=== PATIENT | male | born 1950 ===

== ENCOUNTER 2023-07-02 08:07 | Inpatient (IN) | payer OTHER ==
[~2023-07-02] VITALS: Ht 175.3 cm; Wt 102.0 kg
[2023-07-02] VITALS (8 sets, daily range): BP systolic 131–146; BP diastolic 53–74; PULSE 75–134; RESP 22–38; TEMP 100.2–101; O2SAT 92–96
[2023-07-02 08:41] LABS: BASOPHILS % (AUTO) 0.8 % (0.0-2.0); EOSINOPHILS % (AUTO) 0.2 % (1.0-6.0); HEMATOCRIT 41.9 % (41-53); HEMOGLOBIN 14.2 g/dL (13.5-17.5); LYMPHOCYTES # (AUTO) 1.9 K/uL (1.0-4.8); LYMPHOCYTES % (AUTO) 12.3 % (22.0-44.0); MEAN CORPUSCULAR HEMOGLOBIN 28.8 pg (26.0-34.0); MEAN CORPUSCULAR HGB CONC 33.9 G/dL (31.0-37.0); MEAN CORPUSCULAR VOLUME 85 fL (80-100); MONOCYTES # (AUTO) 1.7 K/uL (0.1-1.0); NEUTROPHILS # (AUTO) 11.8 K/uL (1.8-7.7); NEUTROPHILS % (AUTO) 75.7 % (40.0-70.0); PLATELET COUNT (AUTO) 283 K/uL (150-450); RED BLOOD CELL COUNT(AUTO) 4.93 MIL/uL (4.50-5.90); RED CELL DISTRIBUTION WIDTH 15.1 % (11.5-14.5); WHITE BLOOD COUNT (AUTO) 15.7 K/uL (4.5-11.0)
[2023-07-02 08:42] LABS: COVID AG,FIA SOURCE NASAL SWAB
[2023-07-02 08:51] LABS: ANION GAP 7 mmol/L (8-16); CALCIUM, TOTAL 8.7 mg/dL (8.8-10.5); CARBON DIOXIDE 27 mmol/L (22-29); CHLORIDE 98 mmol/L (98-107); CREATININE 1.02 mg/dL (0.60-1.30); GLOMERULAR FILTR. RATE CALC > 60 mL/min (>60); GLUCOSE,RANDOM 194 mg/dL (70-110); POTASSIUM 4.5 mmol/L (3.5-5.1); SODIUM SERUM 132 mmol/L (136-145); UREA NITROGEN, BLOOD 18 mg/dL (7-18)
[2023-07-02 08:54] LABS: INR 1.1 (0.9-1.1); PROTHROMBIN TIME 11.3 SEC (9.4-11.6)
[2023-07-02 09:06] LABS: B-TYPE NATRIURETIC PEPTIDE 305 pg/mL (0-100); TROPONIN I-HIGH SENSITIVITY 254 ng/L (<76)
[2023-07-02 09:10] LABS: SARS-COV2 (COVID) ANTIGEN,FIA Negative (Negative)
[2023-07-02 09:13] LABS: INFLUENZA TYPE A NEGATIVE FOR TYPE A (NEGATIVE); INFLUENZA TYPE B NEGATIVE FOR TYPE B (NEGATIVE)
[2023-07-02 09:14] LABS: RESPIRATORY SYNCYTIAL VIRS,FIA NEGATIVE (Negative)
[2023-07-02] MEDS ORDERED: NITROGLYCERIN 2% (1 GM=INCH) OINTMENT PACKET TP ONE (09:15)
[2023-07-02] MEDS ORDERED: FUROSEMIDE 20 MG/2 ML VIAL IVP ONE (09:15)
[2023-07-02] MEDS ORDERED: PIPERACILLIN/TAZO 3.375 GM/D5W 50 ML IV ONE (09:15)
[2023-07-02] MEDS ORDERED: AZITHROMYCIN 500 MG/NS 250 ML IV ONE (09:15)
[2023-07-02 09:16] LABS: ALANINE AMINOTRANSFERASE 24 U/L (12-78); ALBUMIN 2.7 g/dL (3.4-5.0); ALKALINE PHOSPHATASE 77 U/L (46-116); ASPARTATE AMINOTRANSFERASE 35 U/L (15-37); BILIRUBIN,TOTAL 1.2 mg/dL (0.1-1.0); CREATINE KINASE, TOTAL ONLY 219 U/L (39-308); TOTAL PROTEIN, SERUM 8.1 g/dL (6.4-8.2)
[2023-07-02 09:17] LABS: SOURCE, BLOOD GAS ARTERIAL
[2023-07-02 09:18] LABS: ABG TOTAL HEMOGLOBIN 15.7 G/dL (12.0-18.0); TEMPERATURE, FAHRENHEIT, BG 98.3 FAHREN (96.0-98.6)
[2023-07-02 09:48] LABS: ABG CARBOXYHEMOGLOBIN 1.7 % (0.0-1.5); ABG HCO3 24.8 mmol/L (22.0-26.0); ABG METHEMOGLOBIN 0.2 % (0.0-1.5); ABG OXYGEN CONTENT 20.6 mL/dL (15.0-23.0); ABG OXYHEMOGLOBIN 93.2 % (94.0-100.0); ABG PCO2 47 mmHg (35-45); ABG PH 7.366 (7.35-7.450); PO2, ARTERIAL BG 76.6 mmHg (75.0-83.0)
[2023-07-02 09:49] LABS: ABG A-A DIFF O2 227.2 mmHg (10-20.0); ALLEN TEST, BLOOD GAS Positive; O2 DEVICE,BLOOD GAS BIPAP (ROOM AIR); SITE, BLOOD GAS RT RADIAL; SPONTANEOUS VT, BG 875 ml
[2023-07-02 09:57] LABS: LACTIC ACID 1.2 mmol/L (0.4-2.0)
[2023-07-02 13:03] LABS: APPEARANCE,URINE CLEAR (CLEAR); BILIRUBIN,URINE NEGATIVE (NEGATIVE); COLOR,URINE LIGHT YELLOW (YELLOW); GLUCOSE, URINE (UA) NEGATIVE (NEGATIVE); KETONES,URINE NEGATIVE (NEGATIVE); LEUKOCYTE ESTERASE ,URINE NEGATIVE (NEGATIVE); NITRATE,URINE NEGATIVE (NEGATIVE); OCCULT BLOOD,URINE NEGATIVE (NEGATIVE); PROTEIN,URINE NEGATIVE (NEGATIVE); SPECIFIC GRAVITIY, URINE 1.011 (1.003-1.030); UROBILINOGEN,URINE <=1.0 mg/dL (<=1.0)
[2023-07-02] MEDS ORDERED: MORPHINE SULFATE 2 MG/ML SYRINGE IVP PRN (13:15)
[2023-07-02] MEDS ORDERED: HYDROCODONE/ACETAMINOPHEN 5-325 MG TABLET PO PRN (13:15)
[2023-07-02] MEDS ORDERED: ZOLPIDEM TARTRATE 5 MG TABLET PO PRN (13:15)
[2023-07-02] MEDS ORDERED: *CLINICAL-LEVOFLOXACIN IVPB DOSING CLINICAL ONE (13:15)
[2023-07-02] MEDS ORDERED: BISACODYL 10 MG RECTAL RECTAL SUPPOSITORY PR PRN (13:15)
[2023-07-02] MEDS ORDERED: ONDANSETRON HCL 4 MG/2 ML VIAL IVP PRN (13:15)
[2023-07-02] MEDS: LEVOFLOXACIN 500 MG/D5% WATER 100 ML IV SCH (15:46)
[2023-07-02] MEDS: HEPARIN SODIUM,PORCINE 5,000 UNITS/ML VIAL SQ SCH ×2 (17:21→23:43)
[2023-07-02 17:26] LABS: TROPONIN I-HIGH SENSITIVITY 198 ng/L (<76)
[2023-07-02] MEDS: FUROSEMIDE 20 MG/2 ML VIAL IVP SCH (19:54)
[2023-07-02] MEDS: DOCUSATE SODIUM 100 MG CAPSULE PO SCH (19:54)
[2023-07-02] MEDS: CARVEDILOL 3.125 MG TABLET PO SCH (19:54)
[2023-07-02] MEDS: ACETAMINOPHEN 325 MG TABLET PO PRN (19:57)
[2023-07-03] VITALS (9 sets, daily range): BP systolic 105–143; BP diastolic 65–94; PULSE 79–95; RESP 17–37; TEMP 98.3–99.9; O2SAT 93–97
[2023-07-03 05:53] LABS: BASOPHILS % (AUTO) 0.7 % (0.0-2.0); EOSINOPHILS % (AUTO) 1.2 % (1.0-6.0); HEMATOCRIT 39.9 % (41-53); HEMOGLOBIN 13.2 g/dL (13.5-17.5); LYMPHOCYTES # (AUTO) 2.6 K/uL (1.0-4.8); LYMPHOCYTES % (AUTO) 18.4 % (22.0-44.0); MEAN CORPUSCULAR HEMOGLOBIN 28.3 pg (26.0-34.0); MEAN CORPUSCULAR VOLUME 86 fL (80-100); MONOCYTES % (AUTO) 14.5 % (2.0-9.0); NEUTROPHILS # (AUTO) 9.1 K/uL (1.8-7.7); NEUTROPHILS % (AUTO) 65.2 % (40.0-70.0); PLATELET COUNT (AUTO) 252 K/uL (150-450); RED BLOOD CELL COUNT(AUTO) 4.66 MIL/uL (4.50-5.90); RED CELL DISTRIBUTION WIDTH 14.9 % (11.5-14.5)
[2023-07-03 06:06] LABS: ANION GAP 6 mmol/L (8-16); CARBON DIOXIDE 30 mmol/L (22-29); CHLORIDE 99 mmol/L (98-107); CREATININE 1.07 mg/dL (0.60-1.30); GLUCOSE,RANDOM 107 mg/dL (70-110); POTASSIUM 4.3 mmol/L (3.5-5.1); SODIUM SERUM 135 mmol/L (136-145); UREA NITROGEN, BLOOD 25 mg/dL (7-18)
[2023-07-03 06:07] LABS: CALCIUM, TOTAL 8.6 mg/dL (8.8-10.5); GLOMERULAR FILTR. RATE CALC > 60 mL/min (>60)
[2023-07-03 06:21] LABS: TROPONIN I-HIGH SENSITIVITY 111 ng/L (<76)
[2023-07-03] MEDS: DOCUSATE SODIUM 100 MG CAPSULE PO SCH ×2 (08:24→20:14)
[2023-07-03] MEDS: PANTOPRAZOLE SODIUM 40 MG DR TABLET PO SCH (08:25)
[2023-07-03] MEDS: HEPARIN SODIUM,PORCINE 5,000 UNITS/ML VIAL SQ SCH ×2 (08:25→16:39)
[2023-07-03] MEDS: FUROSEMIDE 20 MG/2 ML VIAL IVP SCH ×2 (08:25→20:14)
[2023-07-03] MEDS: CARVEDILOL 3.125 MG TABLET PO SCH ×2 (08:25→20:13)
[2023-07-03] MEDS: LEVOFLOXACIN 500 MG/D5% WATER 100 ML IV SCH (16:39)
[2023-07-04] VITALS (8 sets, daily range): BP systolic 96–157; BP diastolic 59–91; PULSE 75–105; RESP 18–34; TEMP 98.1–100; O2SAT 89–96
[2023-07-04] MEDS: HEPARIN SODIUM,PORCINE 5,000 UNITS/ML VIAL SQ SCH ×3 (00:31→15:42)
[2023-07-04] MEDS: ACETAMINOPHEN 325 MG TABLET PO PRN ×3 (00:32→20:49)
[2023-07-04 05:54] LABS: BASOPHILS % (AUTO) 0.4 % (0.0-2.0); EOSINOPHILS % (AUTO) 2.9 % (1.0-6.0); HEMATOCRIT 37.9 % (41-53); HEMOGLOBIN 12.8 g/dL (13.5-17.5); LYMPHOCYTES # (AUTO) 1.9 K/uL (1.0-4.8); LYMPHOCYTES % (AUTO) 18.6 % (22.0-44.0); MEAN CORPUSCULAR HEMOGLOBIN 28.8 pg (26.0-34.0); MEAN CORPUSCULAR HGB CONC 33.9 G/dL (31.0-37.0); MEAN CORPUSCULAR VOLUME 85 fL (80-100); MONOCYTES # (AUTO) 1.5 K/uL (0.1-1.0); MONOCYTES % (AUTO) 15.3 % (2.0-9.0); NEUTROPHILS # (AUTO) 6.4 K/uL (1.8-7.7); NEUTROPHILS % (AUTO) 62.8 % (40.0-70.0); PLATELET COUNT (AUTO) 274 K/uL (150-450); RED BLOOD CELL COUNT(AUTO) 4.46 MIL/uL (4.50-5.90); RED CELL DISTRIBUTION WIDTH 14.7 % (11.5-14.5); WHITE BLOOD COUNT (AUTO) 10.1 K/uL (4.5-11.0)
[2023-07-04 06:03] LABS: ANION GAP 8 mmol/L (8-16); CALCIUM, TOTAL 7.8 mg/dL (8.8-10.5); CARBON DIOXIDE 28 mmol/L (22-29); CHLORIDE 97 mmol/L (98-107); CREATININE 1.02 mg/dL (0.60-1.30); GLOMERULAR FILTR. RATE CALC > 60 mL/min (>60); GLUCOSE,RANDOM 115 mg/dL (70-110); SODIUM SERUM 133 mmol/L (136-145); UREA NITROGEN, BLOOD 31 mg/dL (7-18)
[2023-07-04 08:08] LABS: TROPONIN I-HIGH SENSITIVITY 45 ng/L (<76)
[2023-07-04] MEDS: MULTIVITAMINS, THERAPEUTIC TABLET PO SCH (08:38)
[2023-07-04] MEDS: CARVEDILOL 3.125 MG TABLET PO SCH ×2 (08:38→20:49)
[2023-07-04] MEDS: PANTOPRAZOLE SODIUM 40 MG DR TABLET PO SCH (08:38)
[2023-07-04] MEDS: DOCUSATE SODIUM 100 MG CAPSULE PO SCH ×2 (08:39→20:49)
[2023-07-04] MEDS: FUROSEMIDE 20 MG/2 ML VIAL IVP SCH ×2 (08:39→20:49)
[2023-07-04] MEDS: LEVOFLOXACIN 750 MG/D5% WATER 150 ML IV SCH (15:43)
[2023-07-05 00:25] VITALS: BP 141/78; PULSE 92; RESP 18; TEMP 99.8
[2023-07-05 04:37] VITALS: BP 157/87; PULSE 94; RESP 21; TEMP 98.7
[2023-07-05 07:20] LABS: BASOPHILS % (AUTO) 0.3 % (0.0-2.0); EOSINOPHILS % (AUTO) 2.9 % (1.0-6.0); LYMPHOCYTES # (AUTO) 1.6 K/uL (1.0-4.8); LYMPHOCYTES % (AUTO) 17.3 % (22.0-44.0); MEAN CORPUSCULAR HGB CONC 34.1 G/dL (31.0-37.0); MEAN CORPUSCULAR VOLUME 85 fL (80-100); MONOCYTES # (AUTO) 1.4 K/uL (0.1-1.0); MONOCYTES % (AUTO) 15.1 % (2.0-9.0); NEUTROPHILS % (AUTO) 64.4 % (40.0-70.0); PLATELET COUNT (AUTO) 294 K/uL (150-450); RED BLOOD CELL COUNT(AUTO) 4.46 MIL/uL (4.50-5.90); RED CELL DISTRIBUTION WIDTH 14.6 % (11.5-14.5); WHITE BLOOD COUNT (AUTO) 9.3 K/uL (4.5-11.0)
[2023-07-05 07:48] LABS: ANION GAP 8 mmol/L (8-16); CALCIUM, TOTAL 8.1 mg/dL (8.8-10.5); CARBON DIOXIDE 28 mmol/L (22-29); CHLORIDE 96 mmol/L (98-107); CREATININE 0.86 mg/dL (0.60-1.30); GLOMERULAR FILTR. RATE CALC > 60 mL/min (>60); GLUCOSE,RANDOM 106 mg/dL (70-110); POTASSIUM 3.9 mmol/L (3.5-5.1); SODIUM SERUM 132 mmol/L (136-145); UREA NITROGEN, BLOOD 24 mg/dL (7-18)
[2023-07-05] MEDS: CARVEDILOL 3.125 MG TABLET PO SCH ×2 (08:28→21:28)
[2023-07-05] MEDS: FUROSEMIDE 20 MG/2 ML VIAL IVP SCH ×2 (08:28→21:29)
[2023-07-05] MEDS: MULTIVITAMINS, THERAPEUTIC TABLET PO SCH (08:28)
[2023-07-05] MEDS: PANTOPRAZOLE SODIUM 40 MG DR TABLET PO SCH (08:28)
[2023-07-05] MEDS: HEPARIN SODIUM,PORCINE 5,000 UNITS/ML VIAL SQ SCH ×4 (08:28→23:52)
[2023-07-05] MEDS: DOCUSATE SODIUM 100 MG CAPSULE PO SCH ×2 (08:28→21:00)
[2023-07-05 08:53] VITALS: BP 147/85; PULSE 93; RESP 19; TEMP 98.8
[2023-07-05 11:14] VITALS: BP 154/86; PULSE 105; RESP 14; TEMP 98.6
[2023-07-05 13:14] LABS: S PNEUMO SOURCE Urine; STREP PNEUMONIAE AG URINE Negative (Negative)
[2023-07-05 14:07] LABS: LEGIONELLA PNEUMO AG URINE Negative (Negative)
[2023-07-05] MEDS ORDERED: SODIUM CHLORIDE 0.9% 250 ML IV ONE (14:41)
[2023-07-05] MEDS: CLINDAMYCIN 600 MG/D5% WATER 50 ML IV SCH ×2 (14:45→21:29)
[2023-07-05 14:48] VITALS: BP 148/84; PULSE 96; RESP 16; TEMP 98.2
[2023-07-05] MEDS: LEVOFLOXACIN 750 MG/D5% WATER 150 ML IV SCH (15:31)
[2023-07-05 20:00] VITALS: BP 155/82; PULSE 100; RESP 16; TEMP 98.3
[2023-07-06] VITALS (7 sets, daily range): BP systolic 133–159; BP diastolic 76–94; PULSE 69–92; RESP 16–19; TEMP 98.2–98.7; O2SAT 98
[2023-07-06] MEDS: CLINDAMYCIN 600 MG/D5% WATER 50 ML IV SCH ×3 (06:34→21:02)
[2023-07-06 07:02] LABS: ANION GAP 7 mmol/L (8-16); CALCIUM, TOTAL 8.8 mg/dL (8.8-10.5); CARBON DIOXIDE 29 mmol/L (22-29); CHLORIDE 97 mmol/L (98-107); CREATININE 0.96 mg/dL (0.60-1.30); GLOMERULAR FILTR. RATE CALC > 60 mL/min (>60); GLUCOSE,RANDOM 104 mg/dL (70-110); POTASSIUM 4.2 mmol/L (3.5-5.1); SODIUM SERUM 133 mmol/L (136-145); UREA NITROGEN, BLOOD 24 mg/dL (7-18)
[2023-07-06] MEDS: FUROSEMIDE 20 MG/2 ML VIAL IVP SCH ×2 (09:00→21:01)
[2023-07-06] MEDS: DOCUSATE SODIUM 100 MG CAPSULE PO SCH ×2 (09:01→21:01)
[2023-07-06] MEDS: CARVEDILOL 6.25 MG TABLET PO SCH ×2 (09:01→21:01)
[2023-07-06] MEDS: HEPARIN SODIUM,PORCINE 5,000 UNITS/ML VIAL SQ SCH ×3 (09:01→23:10)
[2023-07-06] MEDS: MULTIVITAMINS, THERAPEUTIC TABLET PO SCH (09:01)
[2023-07-06] MEDS: PANTOPRAZOLE SODIUM 40 MG DR TABLET PO SCH (09:01)
[2023-07-06] MEDS: LEVOFLOXACIN 750 MG/D5% WATER 150 ML IV SCH (14:02)
[2023-07-06] MEDS: MAGNESIUM HYDROXIDE SUSPENSION 30 ML UDCUP PO PRN (18:39)
[2023-07-07 05:35] VITALS: BP 156/86; PULSE 82; RESP 19; TEMP 98.3
[2023-07-07] MEDS: CLINDAMYCIN 600 MG/D5% WATER 50 ML IV SCH ×3 (06:15→22:24)
[2023-07-07 07:56] VITALS: BP 140/85; PULSE 80; RESP 21; TEMP 98.4
[2023-07-07 08:00] VITALS: PULSE 72; RESP 16; O2SAT 99
[2023-07-07] MEDS: MULTIVITAMINS, THERAPEUTIC TABLET PO SCH (09:06)
[2023-07-07] MEDS: PANTOPRAZOLE SODIUM 40 MG DR TABLET PO SCH (09:06)
[2023-07-07] MEDS: DOCUSATE SODIUM 100 MG CAPSULE PO SCH ×2 (09:06→20:55)
[2023-07-07] MEDS: HEPARIN SODIUM,PORCINE 5,000 UNITS/ML VIAL SQ SCH ×3 (09:06→23:48)
[2023-07-07] MEDS: CARVEDILOL 6.25 MG TABLET PO SCH ×2 (09:06→20:55)
[2023-07-07] MEDS: FUROSEMIDE 20 MG/2 ML VIAL IVP SCH ×2 (09:10→20:55)
[2023-07-07 11:49] VITALS: BP 137/77; PULSE 78; RESP 20; TEMP 98.3
[2023-07-07] MEDS ORDERED: *CLINICAL-CEFEPIME DOSING CLINICAL ONE (12:15)
[2023-07-07] MEDS: CEFEPIME HCL 2 GM in DEXTROSE 5%-WATER 50 ML IV SCH ×2 (14:19→20:55)
[2023-07-07 15:44] VITALS: BP 136/78; PULSE 84; RESP 19; TEMP 98.3
[2023-07-07] MEDS: LEVOFLOXACIN 750 MG/D5% WATER 150 ML IV SCH (16:04)
[2023-07-07] MEDS: MAGNESIUM HYDROXIDE SUSPENSION 30 ML UDCUP PO PRN (18:40)
[2023-07-07 20:08] VITALS: BP 168/91; PULSE 86; RESP 21; TEMP 98.6
[2023-07-08 00:43] VITALS: BP 141/84; PULSE 90; RESP 20; TEMP 98.3
[2023-07-08 04:13] VITALS: BP 139/81; PULSE 87; RESP 20; TEMP 98.7
[2023-07-08] MEDS: CEFEPIME HCL 2 GM in DEXTROSE 5%-WATER 50 ML IV SCH ×3 (05:00→21:29)
[2023-07-08] MEDS: CLINDAMYCIN 600 MG/D5% WATER 50 ML IV SCH ×3 (06:00→22:39)
[2023-07-08 07:30] VITALS: BP 156/90; PULSE 88; RESP 20; TEMP 98.5
[2023-07-08] MEDS: MULTIVITAMINS, THERAPEUTIC TABLET PO SCH (08:28)
[2023-07-08] MEDS: FUROSEMIDE 20 MG/2 ML VIAL IVP SCH ×2 (08:28→21:29)
[2023-07-08] MEDS: PANTOPRAZOLE SODIUM 40 MG DR TABLET PO SCH (08:28)
[2023-07-08] MEDS: DOCUSATE SODIUM 100 MG CAPSULE PO SCH ×2 (08:28→21:00)
[2023-07-08] MEDS: HEPARIN SODIUM,PORCINE 5,000 UNITS/ML VIAL SQ SCH ×2 (08:28→16:24)
[2023-07-08] MEDS: CARVEDILOL 6.25 MG TABLET PO SCH ×2 (08:28→21:29)
[2023-07-08 11:34] VITALS: BP 138/74; PULSE 83; RESP 20; TEMP 98.2
[2023-07-08] MEDS: LEVOFLOXACIN 750 MG/D5% WATER 150 ML IV SCH (15:03)
[2023-07-08 15:45] VITALS: BP 143/85; PULSE 87; RESP 21; TEMP 98.2
[2023-07-08 19:26] VITALS: BP 144/84; PULSE 92; RESP 20; TEMP 99
[2023-07-09] VITALS (7 sets, daily range): BP systolic 124–152; BP diastolic 71–87; PULSE 82–105; RESP 18–22; TEMP 98–98.8; O2SAT 93
[2023-07-09] MEDS: HEPARIN SODIUM,PORCINE 5,000 UNITS/ML VIAL SQ SCH ×3 (00:14→15:58)
[2023-07-09] MEDS: CEFEPIME HCL 2 GM in DEXTROSE 5%-WATER 50 ML IV SCH ×3 (04:47→20:57)
[2023-07-09] MEDS ORDERED: SODIUM CHLORIDE 0.9% 250 ML IV ONE (04:57)
[2023-07-09] MEDS: CLINDAMYCIN 600 MG/D5% WATER 50 ML IV SCH ×3 (07:04→22:07)
[2023-07-09] MEDS: MULTIVITAMINS, THERAPEUTIC TABLET PO SCH (08:31)
[2023-07-09] MEDS: PANTOPRAZOLE SODIUM 40 MG DR TABLET PO SCH (08:31)
[2023-07-09] MEDS: CARVEDILOL 6.25 MG TABLET PO SCH ×2 (08:31→20:57)
[2023-07-09] MEDS: FUROSEMIDE 20 MG/2 ML VIAL IVP SCH ×2 (08:31→20:57)
[2023-07-09] MEDS: DOCUSATE SODIUM 100 MG CAPSULE PO SCH ×2 (08:31→20:59)
[2023-07-09] MEDS: LEVOFLOXACIN 750 MG/D5% WATER 150 ML IV SCH (15:05)
[2023-07-10] VITALS (7 sets, daily range): BP systolic 118–154; BP diastolic 71–88; PULSE 84–90; RESP 18–20; TEMP 98–98.7
[2023-07-10] MEDS: HEPARIN SODIUM,PORCINE 5,000 UNITS/ML VIAL SQ SCH ×4 (00:16→23:31)
[2023-07-10] MEDS: CEFEPIME HCL 2 GM in DEXTROSE 5%-WATER 50 ML IV SCH ×3 (04:56→20:27)
[2023-07-10] MEDS: CLINDAMYCIN 600 MG/D5% WATER 50 ML IV SCH ×3 (06:07→23:26)
[2023-07-10] MEDS: DOCUSATE SODIUM 100 MG CAPSULE PO SCH ×2 (09:00→20:27)
[2023-07-10] MEDS: PANTOPRAZOLE SODIUM 40 MG DR TABLET PO SCH (09:05)
[2023-07-10] MEDS: MULTIVITAMINS, THERAPEUTIC TABLET PO SCH (09:05)
[2023-07-10] MEDS: CARVEDILOL 6.25 MG TABLET PO SCH ×2 (09:05→20:28)
[2023-07-10] MEDS: FUROSEMIDE 20 MG/2 ML VIAL IVP SCH ×2 (09:05→20:27)
[2023-07-10 11:31] LABS: ABG A-A DIFF O2 212.7 mmHg (10-20.0); ABG BASE EXCESS 5.2 mmol/L (-2.0-3.0); ABG CARBOXYHEMOGLOBIN 1.1 % (0.0-1.5); ABG HCO3 28.6 mmol/L (22.0-26.0); ABG METHEMOGLOBIN 0.1 % (0.0-1.5); ABG OXYGEN CONTENT 19.3 mL/dL (15.0-23.0); ABG OXYGEN SATURATION 93.3 % (95.0-98.0); ABG OXYHEMOGLOBIN 92.2 % (94.0-100.0); ABG PCO2 41 mmHg (35-45); ABG PH 7.463 (7.35-7.450); ABG TOTAL HEMOGLOBIN 14.9 G/dL (12.0-18.0); ALLEN TEST, BLOOD GAS Positive; PO2, ARTERIAL BG 61.1 mmHg (75.0-83.0); SITE, BLOOD GAS RT RADIAL; SOURCE, BLOOD GAS ARTERIAL; TEMPERATURE, FAHRENHEIT, BG 98.6 FAHREN (96.0-98.6)
[2023-07-10 11:32] LABS: O2 DEVICE,BLOOD GAS HI FL CANNULA (ROOM AIR)
[2023-07-10] MEDS: LEVOFLOXACIN 750 MG/D5% WATER 150 ML IV SCH (16:35)
[2023-07-11 03:54] VITALS: BP 128/79; PULSE 82; RESP 19; TEMP 98.4
[2023-07-11] MEDS: CEFEPIME HCL 2 GM in DEXTROSE 5%-WATER 50 ML IV SCH ×3 (05:21→20:39)
[2023-07-11] MEDS: CLINDAMYCIN 600 MG/D5% WATER 50 ML IV SCH ×3 (06:16→22:11)
[2023-07-11 07:18] LABS: BASOPHILS % (AUTO) 0.5 % (0.0-2.0); EOSINOPHILS % (AUTO) 3.1 % (1.0-6.0); HEMATOCRIT 39.9 % (41-53); HEMOGLOBIN 13.2 g/dL (13.5-17.5); LYMPHOCYTES # (AUTO) 2.4 K/uL (1.0-4.8); LYMPHOCYTES % (AUTO) 23.1 % (22.0-44.0); MEAN CORPUSCULAR HEMOGLOBIN 28.1 pg (26.0-34.0); MEAN CORPUSCULAR HGB CONC 33.2 G/dL (31.0-37.0); MEAN CORPUSCULAR VOLUME 85 fL (80-100); MONOCYTES # (AUTO) 1.8 K/uL (0.1-1.0); MONOCYTES % (AUTO) 16.7 % (2.0-9.0); NEUTROPHILS % (AUTO) 56.6 % (40.0-70.0); PLATELET COUNT (AUTO) 386 K/uL (150-450); RED BLOOD CELL COUNT(AUTO) 4.71 MIL/uL (4.50-5.90); RED CELL DISTRIBUTION WIDTH 13.9 % (11.5-14.5); WHITE BLOOD COUNT (AUTO) 10.5 K/uL (4.5-11.0)
[2023-07-11 07:48] LABS: ANION GAP 6 mmol/L (8-16); CALCIUM, TOTAL 8.7 mg/dL (8.8-10.5); CARBON DIOXIDE 28 mmol/L (22-29); CHLORIDE 93 mmol/L (98-107); GLOMERULAR FILTR. RATE CALC > 60 mL/min (>60); GLUCOSE,RANDOM 99 mg/dL (70-110); POTASSIUM 4.3 mmol/L (3.5-5.1); SODIUM SERUM 127 mmol/L (136-145); UREA NITROGEN, BLOOD 22 mg/dL (7-18)
[2023-07-11 08:00] VITALS: BP 124/74; PULSE 80; RESP 18; TEMP 97.9
[2023-07-11] MEDS: PANTOPRAZOLE SODIUM 40 MG DR TABLET PO SCH (08:31)
[2023-07-11] MEDS: MULTIVITAMINS, THERAPEUTIC TABLET PO SCH (08:31)
[2023-07-11] MEDS: FUROSEMIDE 20 MG/2 ML VIAL IVP SCH ×2 (08:31→20:38)
[2023-07-11] MEDS: CARVEDILOL 6.25 MG TABLET PO SCH ×2 (08:31→20:38)
[2023-07-11] MEDS: HEPARIN SODIUM,PORCINE 5,000 UNITS/ML VIAL SQ SCH ×3 (08:31→23:54)
[2023-07-11] MEDS: DOCUSATE SODIUM 100 MG CAPSULE PO SCH ×2 (09:00→21:00)
[2023-07-11 12:00] VITALS: BP 130/80; PULSE 74; RESP 18; TEMP 97.9
[2023-07-11 16:00] VITALS: BP 126/84; PULSE 76; RESP 18; TEMP 97.9
[2023-07-11] MEDS: LEVOFLOXACIN 750 MG/D5% WATER 150 ML IV SCH (16:00)
[2023-07-11 20:01] VITALS: BP 125/81; PULSE 89; RESP 18; TEMP 98.2
[2023-07-12] VITALS (8 sets, daily range): BP systolic 113–157; BP diastolic 70–93; PULSE 75–107; RESP 18–28; TEMP 98–98.7
[2023-07-12] MEDS: CEFEPIME HCL 2 GM in DEXTROSE 5%-WATER 50 ML IV SCH ×3 (05:23→21:31)
[2023-07-12] MEDS: CLINDAMYCIN 600 MG/D5% WATER 50 ML IV SCH ×3 (06:20→22:28)
[2023-07-12 07:53] LABS: ANION GAP 8 mmol/L (8-16); CARBON DIOXIDE 27 mmol/L (22-29); CHLORIDE 93 mmol/L (98-107); GLOMERULAR FILTR. RATE CALC > 60 mL/min (>60); GLUCOSE,RANDOM 100 mg/dL (70-110); POTASSIUM 4.7 mmol/L (3.5-5.1); SODIUM SERUM 128 mmol/L (136-145); UREA NITROGEN, BLOOD 23 mg/dL (7-18)
[2023-07-12] MEDS: HEPARIN SODIUM,PORCINE 5,000 UNITS/ML VIAL SQ SCH ×3 (08:00→16:44)
[2023-07-12] MEDS: PANTOPRAZOLE SODIUM 40 MG DR TABLET PO SCH (08:53)
[2023-07-12] MEDS: DOCUSATE SODIUM 100 MG CAPSULE PO SCH ×2 (08:53→21:31)
[2023-07-12] MEDS: FUROSEMIDE 20 MG/2 ML VIAL IVP SCH ×2 (08:53→21:34)
[2023-07-12] MEDS: CARVEDILOL 6.25 MG TABLET PO SCH ×2 (08:54→21:34)
[2023-07-12] MEDS: MULTIVITAMINS, THERAPEUTIC TABLET PO SCH (08:54)
[2023-07-12] MEDS: LEVOFLOXACIN 750 MG/D5% WATER 150 ML IV SCH (16:43)
[2023-07-12 17:24] LABS: APPEARANCE,URINE CLEAR (CLEAR); BILIRUBIN,URINE NEGATIVE (NEGATIVE); COLOR,URINE YELLOW (YELLOW); GLUCOSE, URINE (UA) NEGATIVE (NEGATIVE); KETONES,URINE NEGATIVE (NEGATIVE); LEUKOCYTE ESTERASE ,URINE NEGATIVE (NEGATIVE); NITRATE,URINE NEGATIVE (NEGATIVE); OCCULT BLOOD,URINE TRACE (NEGATIVE); PH,URINE 5.5 (5.0-8.0); PROTEIN,URINE 30-70 mg/dL (NEGATIVE); UROBILINOGEN,URINE <=1.0 mg/dL (<=1.0)
[2023-07-12 17:26] LABS: CREATININE,URINE RANDOM 117.4 mg/dL (30.0-125.0); POTASSIUM,URINE RANDOM 45 mmol/L (12-75)
[2023-07-12 17:28] LABS: PROTEIN,URINE RANDOM 58 mg/dL (0-11.9); SODIUM,URINE RANDOM 21 mmol/l (20-110); UREA NITROGEN,URINE RANDOM 913 mg/dL (350-1000)
[2023-07-12 17:39] LABS: BACTERIA,URINE None Seen /HPF (None Seen); HYALINE CASTS, URINE 0-2 /LPF (None Seen); RBC,URINE 0-2 /HPF (0-2); WBC,URINE 0-2 /HPF (0-5)
[2023-07-12] MEDS ORDERED: SODIUM CHLORIDE 0.9% 500 ML IV ONE (21:42)
[2023-07-13] VITALS (9 sets, daily range): BP systolic 125–149; BP diastolic 67–78; PULSE 82–98; RESP 18–23; TEMP 97.3–98.4; O2SAT 93–94
[2023-07-13] MEDS: HEPARIN SODIUM,PORCINE 5,000 UNITS/ML VIAL SQ SCH ×4 (00:16→23:57)
[2023-07-13] MEDS: CEFEPIME HCL 2 GM in DEXTROSE 5%-WATER 50 ML IV SCH ×3 (04:37→20:12)
[2023-07-13] MEDS: CLINDAMYCIN 600 MG/D5% WATER 50 ML IV SCH ×3 (05:31→21:06)
[2023-07-13 07:13] LABS: ANION GAP 7 mmol/L (8-16); CARBON DIOXIDE 28 mmol/L (22-29); CHLORIDE 92 mmol/L (98-107); CREATININE 1.09 mg/dL (0.60-1.30); GLOMERULAR FILTR. RATE CALC > 60 mL/min (>60); GLUCOSE,RANDOM 114 mg/dL (70-110); POTASSIUM 4.3 mmol/L (3.5-5.1); SODIUM SERUM 127 mmol/L (136-145); THYROID STIMULATING HORMONE 1.47 uIU/mL (0.36-3.74); UREA NITROGEN, BLOOD 26 mg/dL (7-18); URIC ACID 6.6 mg/dL (2.6-7.2)
[2023-07-13] MEDS: MULTIVITAMINS, THERAPEUTIC TABLET PO SCH (09:01)
[2023-07-13] MEDS: CARVEDILOL 6.25 MG TABLET PO SCH ×2 (09:01→20:18)
[2023-07-13] MEDS: FUROSEMIDE 20 MG/2 ML VIAL IVP SCH ×2 (09:01→20:19)
[2023-07-13] MEDS: DOCUSATE SODIUM 100 MG CAPSULE PO SCH ×2 (09:01→20:16)
[2023-07-13] MEDS: PANTOPRAZOLE SODIUM 40 MG DR TABLET PO SCH (09:01)
[2023-07-13] MEDS: SODIUM CHLORIDE 0.9% 1,000 ML IV SCH (12:07)
[2023-07-13] MEDS: LEVOFLOXACIN 750 MG/D5% WATER 150 ML IV SCH (15:55)
[2023-07-14] VITALS (7 sets, daily range): BP systolic 115–154; BP diastolic 67–88; PULSE 80–86; RESP 18–22; TEMP 98–99.7; O2SAT 94
[2023-07-14] MEDS: SODIUM CHLORIDE 0.9% 1,000 ML IV SCH ×2 (02:17→08:55)
[2023-07-14] MEDS: CEFEPIME HCL 2 GM in DEXTROSE 5%-WATER 50 ML IV SCH ×3 (04:43→21:39)
[2023-07-14] MEDS: CLINDAMYCIN 600 MG/D5% WATER 50 ML IV SCH ×3 (05:27→22:15)
[2023-07-14 06:53] LABS: BASOPHILS % (AUTO) 0.7 % (0.0-2.0); EOSINOPHILS % (AUTO) 3.7 % (1.0-6.0); HEMATOCRIT 43.3 % (41-53); HEMOGLOBIN 14.3 g/dL (13.5-17.5); LYMPHOCYTES # (AUTO) 2.2 K/uL (1.0-4.8); LYMPHOCYTES % (AUTO) 20.5 % (22.0-44.0); MEAN CORPUSCULAR HEMOGLOBIN 27.7 pg (26.0-34.0); MEAN CORPUSCULAR HGB CONC 33.1 G/dL (31.0-37.0); MEAN CORPUSCULAR VOLUME 84 fL (80-100); MONOCYTES # (AUTO) 1.8 K/uL (0.1-1.0); MONOCYTES % (AUTO) 16.8 % (2.0-9.0); NEUTROPHILS # (AUTO) 6.4 K/uL (1.8-7.7); NEUTROPHILS % (AUTO) 58.3 % (40.0-70.0); PLATELET COUNT (AUTO) 391 K/uL (150-450); RED BLOOD CELL COUNT(AUTO) 5.18 MIL/uL (4.50-5.90); RED CELL DISTRIBUTION WIDTH 13.9 % (11.5-14.5)
[2023-07-14 07:15] LABS: ANION GAP 5 mmol/L (8-16); CARBON DIOXIDE 30 mmol/L (22-29); CHLORIDE 92 mmol/L (98-107); CREATININE 1.05 mg/dL (0.60-1.30); GLOMERULAR FILTR. RATE CALC > 60 mL/min (>60); GLUCOSE,RANDOM 114 mg/dL (70-110); POTASSIUM 4.7 mmol/L (3.5-5.1); SODIUM SERUM 127 mmol/L (136-145); UREA NITROGEN, BLOOD 24 mg/dL (7-18)
[2023-07-14 07:21] LABS: MAGNESIUM 2.4 mg/dL (1.80-2.40); PHOSPHORUS 3.4 mg/dL (2.5-4.9)
[2023-07-14] MEDS: DOCUSATE SODIUM 100 MG CAPSULE PO SCH ×2 (08:48→21:39)
[2023-07-14] MEDS: FUROSEMIDE 20 MG/2 ML VIAL IVP SCH (08:48)
[2023-07-14] MEDS: HEPARIN SODIUM,PORCINE 5,000 UNITS/ML VIAL SQ SCH ×3 (08:48→23:54)
[2023-07-14] MEDS: PANTOPRAZOLE SODIUM 40 MG DR TABLET PO SCH (08:49)
[2023-07-14] MEDS: MULTIVITAMINS, THERAPEUTIC TABLET PO SCH (08:49)
[2023-07-14] MEDS: CARVEDILOL 6.25 MG TABLET PO SCH ×2 (08:49→21:40)
[2023-07-14] MEDS: LEVOFLOXACIN 750 MG/D5% WATER 150 ML IV SCH (15:39)
[2023-07-14] MEDS: MethylPREDNISolone SOD SUCC 40 MG/ML VIAL IVP SCH ×2 (18:54→23:54)
[2023-07-14] MEDS: SODIUM CHLORIDE 1 GM TABLET PO SCH (21:39)
[2023-07-15] VITALS (9 sets, daily range): BP systolic 134–145; BP diastolic 70–81; PULSE 70–92; RESP 17–22; TEMP 97.9–98.5; O2SAT 93–94
[2023-07-15] MEDS: CEFEPIME HCL 2 GM in DEXTROSE 5%-WATER 50 ML IV SCH ×3 (04:49→20:38)
[2023-07-15] MEDS: CLINDAMYCIN 600 MG/D5% WATER 50 ML IV SCH ×3 (05:38→21:53)
[2023-07-15 06:52] LABS: BASOPHILS % (AUTO) 0.4 % (0.0-2.0); EOSINOPHILS % (AUTO) 0 % (1.0-6.0); HEMATOCRIT 42.5 % (41-53); HEMOGLOBIN 14.2 g/dL (13.5-17.5); LYMPHOCYTES # (AUTO) 1.5 K/uL (1.0-4.8); LYMPHOCYTES % (AUTO) 13.6 % (22.0-44.0); MEAN CORPUSCULAR HGB CONC 33.4 G/dL (31.0-37.0); MEAN CORPUSCULAR VOLUME 84 fL (80-100); MONOCYTES # (AUTO) 0.5 K/uL (0.1-1.0); MONOCYTES % (AUTO) 4.5 % (2.0-9.0); NEUTROPHILS # (AUTO) 8.9 K/uL (1.8-7.7); NEUTROPHILS % (AUTO) 81.5 % (40.0-70.0); PLATELET COUNT (AUTO) 386 K/uL (150-450); RED BLOOD CELL COUNT(AUTO) 5.07 MIL/uL (4.50-5.90); RED CELL DISTRIBUTION WIDTH 14.3 % (11.5-14.5); WHITE BLOOD COUNT (AUTO) 10.9 K/uL (4.5-11.0)
[2023-07-15 07:11] LABS: ANION GAP 8 mmol/L (8-16); CALCIUM, TOTAL 8.9 mg/dL (8.8-10.5); CARBON DIOXIDE 26 mmol/L (22-29); CHLORIDE 92 mmol/L (98-107); CREATININE 0.99 mg/dL (0.60-1.30); GLOMERULAR FILTR. RATE CALC > 60 mL/min (>60); GLUCOSE,RANDOM 155 mg/dL (70-110); SODIUM SERUM 126 mmol/L (136-145); UREA NITROGEN, BLOOD 27 mg/dL (7-18)
[2023-07-15] MEDS: MethylPREDNISolone SOD SUCC 40 MG/ML VIAL IVP SCH ×3 (08:10→23:55)
[2023-07-15] MEDS: PANTOPRAZOLE SODIUM 40 MG DR TABLET PO SCH (08:12)
[2023-07-15] MEDS: DOCUSATE SODIUM 100 MG CAPSULE PO SCH ×2 (08:12→20:38)
[2023-07-15] MEDS: HEPARIN SODIUM,PORCINE 5,000 UNITS/ML VIAL SQ SCH ×3 (08:12→23:55)
[2023-07-15] MEDS: MULTIVITAMINS, THERAPEUTIC TABLET PO SCH (08:12)
[2023-07-15] MEDS: CARVEDILOL 6.25 MG TABLET PO SCH ×2 (08:12→20:38)
[2023-07-15] MEDS: SODIUM CHLORIDE 1 GM TABLET PO SCH ×2 (08:12→20:38)
[2023-07-15] MEDS ORDERED: TOLVAPTAN 15 MG TABLET PO ONE (11:30)
[2023-07-15] MEDS: LEVOFLOXACIN 750 MG/D5% WATER 150 ML IV SCH (15:06)
[2023-07-16] MEDS: CEFEPIME HCL 2 GM in DEXTROSE 5%-WATER 50 ML IV SCH ×3 (04:42→20:18)
[2023-07-16 05:14] VITALS: BP 133/77; PULSE 75; RESP 19; TEMP 98.1
[2023-07-16] MEDS: CLINDAMYCIN 600 MG/D5% WATER 50 ML IV SCH ×3 (05:38→21:50)
[2023-07-16 08:10] VITALS: BP 125/76; PULSE 85; RESP 2; RESP 20; TEMP 97.8
[2023-07-16] MEDS: CARVEDILOL 6.25 MG TABLET PO SCH (08:23)
[2023-07-16] MEDS: DOCUSATE SODIUM 100 MG CAPSULE PO SCH ×2 (08:29→20:17)
[2023-07-16] MEDS: MethylPREDNISolone SOD SUCC 40 MG/ML VIAL IVP SCH ×2 (08:29→16:25)
[2023-07-16] MEDS: HEPARIN SODIUM,PORCINE 5,000 UNITS/ML VIAL SQ SCH ×2 (08:29→16:25)
[2023-07-16] MEDS: MULTIVITAMINS, THERAPEUTIC TABLET PO SCH (08:29)
[2023-07-16] MEDS: SODIUM CHLORIDE 1 GM TABLET PO SCH ×2 (08:29→20:17)
[2023-07-16] MEDS: PANTOPRAZOLE SODIUM 40 MG DR TABLET PO SCH (08:29)
[2023-07-16 11:37] VITALS: BP_SYST 144; BP_DIAS 149; BP_DIAS 88; PULSE 81; RESP 20; TEMP 98.1
[2023-07-16 15:28] VITALS: BP 129/73; PULSE 81; RESP 19; TEMP 98.6
[2023-07-16] MEDS: LEVOFLOXACIN 750 MG/D5% WATER 150 ML IV SCH (16:25)
[2023-07-16 17:24] LABS: ANION GAP 7 mmol/L (8-16); CARBON DIOXIDE 26 mmol/L (22-29); CHLORIDE 98 mmol/L (98-107); CREATININE 1.16 mg/dL (0.60-1.30); GLOMERULAR FILTR. RATE CALC > 60 mL/min (>60); GLUCOSE,RANDOM 158 mg/dL (70-110); POTASSIUM 5.2 mmol/L (3.5-5.1); SODIUM SERUM 131 mmol/L (136-145); UREA NITROGEN, BLOOD 38 mg/dL (7-18)
[2023-07-16 20:15] VITALS: BP 138/80; PULSE 77; RESP 20; TEMP 98.7
[2023-07-16] MEDS: CARVEDILOL 12.5 MG TABLET PO SCH (20:17)
[2023-07-16 22:01] VITALS: PULSE 81; RESP 17; O2SAT 93
[2023-07-17 00:06] VITALS: BP 129/80; PULSE 78; RESP 20; TEMP 98.3
[2023-07-17] MEDS: HEPARIN SODIUM,PORCINE 5,000 UNITS/ML VIAL SQ SCH ×3 (00:20→16:28)
[2023-07-17] MEDS: MethylPREDNISolone SOD SUCC 40 MG/ML VIAL IVP SCH ×3 (00:20→16:28)
[2023-07-17] MEDS: CEFEPIME HCL 2 GM in DEXTROSE 5%-WATER 50 ML IV SCH (04:17)
[2023-07-17 04:25] VITALS: BP 141/89; PULSE 71; RESP 19; TEMP 98.5
[2023-07-17] MEDS: CLINDAMYCIN 600 MG/D5% WATER 50 ML IV SCH (05:01)
[2023-07-17 06:45] LABS: BASOPHILS % (AUTO) 0.1 % (0.0-2.0); EOSINOPHILS % (AUTO) 0 % (1.0-6.0); HEMATOCRIT 43.2 % (41-53); HEMOGLOBIN 14.3 g/dL (13.5-17.5); LYMPHOCYTES # (AUTO) 1.5 K/uL (1.0-4.8); LYMPHOCYTES % (AUTO) 9.7 % (22.0-44.0); MEAN CORPUSCULAR VOLUME 85 fL (80-100); MONOCYTES # (AUTO) 1.3 K/uL (0.1-1.0); MONOCYTES % (AUTO) 8.2 % (2.0-9.0); NEUTROPHILS # (AUTO) 12.7 K/uL (1.8-7.7); PLATELET COUNT (AUTO) 372 K/uL (150-450); RED CELL DISTRIBUTION WIDTH 14.3 % (11.5-14.5); WHITE BLOOD COUNT (AUTO) 15.5 K/uL (4.5-11.0)
[2023-07-17 06:53] LABS: ANION GAP 3 mmol/L (8-16); CALCIUM, TOTAL 8.9 mg/dL (8.8-10.5); CARBON DIOXIDE 29 mmol/L (22-29); CHLORIDE 97 mmol/L (98-107); CREATININE 0.93 mg/dL (0.60-1.30); GLOMERULAR FILTR. RATE CALC > 60 mL/min (>60); GLUCOSE,RANDOM 160 mg/dL (70-110); POTASSIUM 5.2 mmol/L (3.5-5.1); SODIUM SERUM 129 mmol/L (136-145); UREA NITROGEN, BLOOD 34 mg/dL (7-18)
[2023-07-17] MEDS: MULTIVITAMINS, THERAPEUTIC TABLET PO SCH (08:23)
[2023-07-17] MEDS: CARVEDILOL 12.5 MG TABLET PO SCH (08:23)
[2023-07-17] MEDS: PANTOPRAZOLE SODIUM 40 MG DR TABLET PO SCH (08:24)
[2023-07-17] MEDS: SODIUM CHLORIDE 1 GM TABLET PO SCH (08:24)
[2023-07-17] MEDS: DOCUSATE SODIUM 100 MG CAPSULE PO SCH (08:26)
[2023-07-17 08:34] VITALS: BP 138/74; PULSE 71; RESP 20; TEMP 98
[2023-07-17] MEDS ORDERED: FUROSEMIDE 20 MG/2 ML VIAL IVP ONE (09:45)
[2023-07-17 10:00] VITALS: PULSE 79; RESP 18; O2SAT 95
[2023-07-17 10:52] VITALS: BP 142/76; PULSE 73; RESP 18; TEMP 98.2
[2023-07-17] MEDS ORDERED: PIPERACILLIN/TAZO 3.375 GM/D5W 50 ML IV SCH (16:00)
[2023-07-17 16:08] VITALS: BP 122/75; PULSE 72; RESP 19; TEMP 98.3
[2023-07-17 17:20] LABS: TROPONIN I-HIGH SENSITIVITY 14 ng/L (<76)
[2023-07-17] MEDS: LEVOFLOXACIN 750 MG/D5% WATER 150 ML IV SCH (17:45)
[2023-07-17 20:06] LABS: MYCOPLASMA AB IGM <770 U/mL (0-769)
== END 2023-07-17 20:50 | disposition short-term general hospital (02) | DRG 871 ==
LOC: EMS 08:08 → ICUN 09:44 → ICU 13:47 → 5S 07-04 17:40
PROVIDERS: ADMIT Internal Medicine; ATTEND Internal Medicine
PROC: 5A09357 Assistance with Respiratory Ventilation, Less than 24 Consecutive Hours, Continuous Positive Airway Pressure (ICD-10-PCS; principal; 2023-07-02)
PROC: 5A0935A Assistance with Respiratory Ventilation, Less than 24 Consecutive Hours, High Flow/Velocity Cannula (ICD-10-PCS; 2023-07-03)
PROC: 5A0935A Assistance with Respiratory Ventilation, Less than 24 Consecutive Hours, High Flow/Velocity Cannula (ICD-10-PCS; 2023-07-12)
DX: A41.9 Sepsis, unspecified organism (principal); I50.31 Acute diastolic (congestive) heart failure; J18.1 Lobar pneumonia, unspecified organism; J96.01 Acute respiratory failure with hypoxia; E87.1 Hypo-osmolality and hyponatremia; I47.20 Ventricular tachycardia, unspecified; J47.0 Bronchiectasis with acute lower respiratory infection; E87.3 Alkalosis; I11.0 Hypertensive heart disease with heart failure; E66.9 Obesity, unspecified; T38.0X5A Adverse effect of glucocorticoids and synthetic analogues, initial encounter; Y92.238 Other place in hospital as the place of occurrence of the external cause; E87.8 Other disorders of electrolyte and fluid balance, not elsewhere classified; R91.8 Other nonspecific abnormal finding of lung field; Z20.822 Contact with and (suspected) exposure to COVID-19; R73.9 Hyperglycemia, unspecified; D64.9 Anemia, unspecified; Z82.49 Family history of ischemic heart disease and other diseases of the circulatory system; Z91.119 Patient's noncompliance with dietary regimen due to unspecified reason; Z68.33 Body mass index [BMI] 33.0-33.9, adult
CPT/HCPCS: 36600; 71045; 71250; 71275; 80048; 80053; 81001; 81003; 82533; 82550; 82570; 82805; 83036; 83605; 83735; 83880; 83935; 84100; 84133; 84145; 84156; 84300; 84443; 84484; 84540; 84550; 85025; 85610; 85730; 86171; 86635; 86738; 87040; 87070; 87081; 87205; 87420; 87449; 87804; 87899; 93005; 93306; 94660; 94760; 94761; 97162; 97530; 99285; G0238; J0456; J0692; J1644; J1940; J1956; J2543; J2920; J3490; J7030; J7040; J7050; J7060; 36415-L1; 36415-TC